=== PATIENT | male | born 1995 | race Caucasian/White ===

== ENCOUNTER 2021-03-08 08:53 | Emergency (ER) | payer OTHER ==
[~2021-03-08] VITALS: Ht 170.2 cm; Wt 63.5 kg
--- NOTE | 2021-03-08 09:05 | NUR ---
c/io chest tightness since yesterday around 6pm after playing soccer. Patient sts he felt dizzy this am, and decided to bring himself to the ER. Patient is still c/o right sided chest pain, non-radiating. PS 4-5/10. He stated he's just worried about his lungs. Changed into a gown, attached to the notereader.
--- NOTE | 2021-03-08 09:10 | NUR ---
DR. GAR AT BEDSIDE FOR EVAL.
[2021-03-08 09:34] VITALS: BP 145/95
--- NOTE | 2021-03-08 09:34 | NUR ---
Patient a/ox4, breathing even and unlabored, no sob noted. Needs attended, ambulatory with steady gait. Dr. Reyes gave ACI. Patient discharged to home in stable condition. Written and verbal after care instructions given. Patient verbalizes understanding of instruction.
== END 2021-03-08 09:35 | disposition home or self-care (01) ==
LOC: ER 08:57
DX: R07.89 Other chest pain (principal)
CPT/HCPCS: 71045-TC